=== PATIENT | female | born 1950 | race Caucasian/White ===

== ENCOUNTER 2017-11-29 15:07 | Outpatient (CLI) | payer MEDICARE, BC | END 2017-11-29 15:08 | disposition home or self-care (01) | LOC: BICRAD 15:07 | PROVIDERS: ATTEND Internal Medicine Rheumatology | DX: M54.2 Cervicalgia (principal); M99.51 Intervertebral disc stenosis of neural canal of cervical region | CPT/HCPCS: 72052 ==

== ENCOUNTER 2018-03-21 16:29 | Outpatient (CLI) | payer MEDICARE, BC | END 2018-03-21 16:30 | disposition home or self-care (01) | LOC: BICRAD 16:29 | PROVIDERS: ATTEND Internal Medicine Gastroenterology | DX: K22.70 Barrett's esophagus without dysplasia (principal); R13.10 Dysphagia, unspecified; K44.9 Diaphragmatic hernia without obstruction or gangrene; R05 Cough; K59.00 Constipation, unspecified | CPT/HCPCS: 71046 ==

== ENCOUNTER 2018-09-02 15:26 | Outpatient (CLI) | payer MEDICARE, BC | END 2018-09-02 15:27 | disposition home or self-care (01) | LOC: BICMAMMO 15:26 | PROVIDERS: ATTEND Obstetrics & Gynecology | DX: Z12.31 Encounter for screening mammogram for malignant neoplasm of breast (principal) | CPT/HCPCS: 77063; 77067 ==

== ENCOUNTER 2019-04-27 12:44 | Emergency (ER) | payer MEDICARE, BC | END 2019-04-27 13:30 | disposition home or self-care (01) | LOC: SCSER 12:44 | DX: H81.10 Benign paroxysmal vertigo, unspecified ear (principal); Z86.718 Personal history of other venous thrombosis and embolism; E78.5 Hyperlipidemia, unspecified; Z87.891 Personal history of nicotine dependence; Z79.899 Other long term (current) drug therapy; Z79.01 Long term (current) use of anticoagulants; Z79.82 Long term (current) use of aspirin | CPT/HCPCS: 99283 ==

== ENCOUNTER 2019-09-08 13:42 | Outpatient (CLI) | payer MEDICARE, BC ==
--- NOTE | 2019-09-08 14:14 | MMO ---
Bilateral MAMMO Bilat Screen [facility]. CLINICAL HISTORY: Patient is 69 years old and is seen for screening. The patient has no family history of breast cancer. The patient has a history of Skin cancer. VIEWS: The views performed were: bilateral craniocaudal with tomosynthesis and bilateral mediolateral oblique with tomosynthesis. FILMS COMPARED: The present examination has been compared to prior imaging studies performed at [facility] on 06/23/2015, 07/06/2016, 08/01/2017 and 09/02/2018. This study has been interpreted with the assistance of computer-aided detection. MAMMOGRAM FINDINGS: There are scattered fibroglandular densities. There are no suspicious masses, suspicious calcifications, or new areas of architectural distortion. IMPRESSION: THERE IS NO MAMMOGRAPHIC EVIDENCE OF MALIGNANCY. A ROUTINE FOLLOW-UP MAMMOGRAM IN 1 YEAR IS RECOMMENDED. THE RESULTS OF THIS EXAM WERE SENT TO THE PATIENT. ACR BI-RADS Category 1 - Negative MAMMOGRAPHY NOTE: 1. A negative mammogram report should not delay a biopsy if a dominant of clinically suspicious mass is present. 2. Approximately 10% to 15% of breast cancers are not detected by mammography. 3. Adenosis and dense breasts may obscure an underlying neoplasm. Reported by: NOEMY QUINTANA MD Electonically Signed: [id number]
== END 2019-09-08 13:43 | disposition home or self-care (01) ==
LOC: BICMAMMO 13:42
PROVIDERS: ATTEND Obstetrics & Gynecology
DX: Z12.31 Encounter for screening mammogram for malignant neoplasm of breast (principal); Z85.828 Personal history of other malignant neoplasm of skin
CPT/HCPCS: 77063; 77067

== ENCOUNTER 2020-06-10 08:14 | Outpatient (CLI) | payer MEDICARE, BC, OTHER ==
[2020-06-10 14:34] LABS: #Basophils 0.1 thou/uL (0.0-0.2); #Eosinphils 0.3 thou/uL (0.0-0.7); #Lymphocytes 1.1 thou/uL (1.20-3.40); #Monocytes 0.7 thou/uL (0.11-0.59); #Neutrophils 4.7 thou/uL (1.40-6.50); %Basophils 0.8 % (0.0-1.0); %Eosinophils 4.5 % (0.0-10.0); %Lymphocytes 15.8 % (21.0-51.0); %Monocytes 10.2 % (0.0-10.0); %Neutrophils 68.6 % (42.0-75.0); Hemoglobin 13.8 g/dL (12.0-16.0); Mean Corpuscular HGB CONC 32.9 g/dL (32.0-36.0); Mean Corpuscular Hemoglobin 29.3 pg (27.0-31.0); Mean Corpuscular Volume 89.2 fL (78.0-98.0); Mean Platelet Volume 7.8 fL (7.4-10.4); Platelet Count 300 thou/uL (130-400); RBC Distribution Width 16.4 % (11.5-14.5); Red Blood Cell (RBC) Count 4.69 mill/uL (4.20-5.40); White Blood Cell (WBC) Count 6.8 thou/uL (4.8-10.8)
[2020-06-10 15:16] LABS: ALT (SGPT) 14 U/L (8-55); AST (SGOT) 15 U/L (5-34); Alkaline Phosphatase 90 U/L (40-110); Anion Gap 17 mmol/L (10-20); BUN (Urea Nitrogen) 11 mg/dL (9.8-20.1); Bilirubin, Total 0.4 mg/dL (0.2-1.2); Calc. Creatinine Clearance 0 mL/min (70-130); Calcium 8.8 mg/dL (7.8-10.44); Carbon Dioxide 21 mmol/L (23-31); Chloride 106 mmol/L (98-107); Estimated GFR-MDRD 77; Globulin 3.2 g/dL (2.4-3.5); Glucose 117 mg/dL (83-110); Potassium 4.7 mmol/L (3.5-5.1); Protein, Total 7.2 g/dL (6.0-8.3); Sodium 139 mmol/L (136-145)
[2020-06-11 12:33] LABS: SARS-CoV-2 MS2 Positive; SARS-CoV-2 N Gene Negative; SARS-CoV-2 S Gene Negative; SARS-CoV-2 by NAA Not Detected (NotDetected); SARS-CoV-2 orf1ab Negative
--- NOTE | 2020-06-13 16:04 | EKG ---
Test Reason : PREOP Blood Pressure : / mmHG Vent. Rate : 065 BPM Atrial Rate : 066 BPM P-R Int : 000 ms QRS Dur : 108 ms QT Int : 422 ms P-R-T Axes : 000 -37 070 degrees QTc Int : 438 ms Normal sinus rhythm. Left axis deviation Incomplete right bundle branch block Abnormal ECG No previous ECGs available Confirmed by Monse TA ([id number]) on 06/13/2020 4:04:27 PM Referred By: Alexia AKERS Confirmed By:Monse TA
== END 2020-06-10 08:15 | disposition home or self-care (01) ==
LOC: LABBT 08:14
PROVIDERS: ATTEND Internal Medicine Cardiovascular Disease
DX: Z01.818 Encounter for other preprocedural examination (principal); Z20.828 Contact with and (suspected) exposure to other viral communicable diseases; R94.39 Abnormal result of other cardiovascular function study
CPT/HCPCS: 80053; 85025; U0003; 87635; 93005; 93010

== ENCOUNTER 2020-06-14 06:19 | Inpatient (IN) | payer MEDICARE, BC ==
[2020-06-14] MEDS ORDERED: Lidocaine 1% (PF) 30 ML VIAL ONE (09:44)
[2020-06-14] MEDS ORDERED: Nitroglycerin 100MG/250ML BOT 250 ML ONE ×2 (09:55→10:42)
[2020-06-14] MEDS ORDERED: Verapamil 5 MG/2 ML VIAL ONE (09:55)
[2020-06-14] MEDS ORDERED: Heparin 10,000 UNITS/ 10 ML VIAL ONE ×2 (09:55→10:15)
[2020-06-14] MEDS ORDERED: Fentanyl 100 MCG/2 ML VIAL ONE (10:12)
[2020-06-14] MEDS ORDERED: Midazolam HCl 2 mg/2 ml Vial ONE (10:12)
[2020-06-14] MEDS ORDERED: Clopidogrel Bisulfate 300 MG TAB ONE (10:42)
[2020-06-14] MEDS ORDERED: Aspirin Chewable 81 MG TAB ONE (10:42)
[2020-06-14] MEDS ORDERED: Bivalirudin 250 MG VIAL ONE ×2 (10:42→12:07)
[2020-06-14] MEDS ORDERED: Iopamidol 370 76% 100 ML VIAL ONE (12:10)
[2020-06-14] MEDS ORDERED: Iopamidol 370 76% 50 ML VIAL FS ONE (12:10)
[2020-06-14] MEDS ORDERED: RISEDRONATE 35 MG PO SCH (13:45)
[2020-06-14] MEDS ORDERED: Sodium Chloride 0.9% 1,000 ML IV SCH (13:48)
[2020-06-14] MEDS ORDERED: Nitroglycerin 0.4 MG TAB (25 Tab Bottle) SL PRN (13:48)
--- NOTE | 2020-06-14 15:27 | EKG ---
Test Reason : POST CATH Blood Pressure : / mmHG Vent. Rate : 053 BPM Atrial Rate : 053 BPM P-R Int : 236 ms QRS Dur : 098 ms QT Int : 362 ms P-R-T Axes : 063 -31 059 degrees QTc Int : 339 ms Sinus bradycardia with 1st degree A-V block Left axis deviation Nonspecific T wave abnormality Abnormal ECG Confirmed by SABINE RUELAS M.D. ([id number]) on 06/14/2020 3:27:20 PM Referred By: OSWALD Confirmed By:SABINE RUELAS M.D.
[2020-06-14 15:59] VITALS: BMI 30.5
[2020-06-14] MEDS: Ubidecarenone 50 MG CAP PO SCH (20:52)
[2020-06-14] MEDS: Metoprolol Tartrate 25 MG TAB PO SCH (20:55)
[2020-06-14] MEDS: Amiodarone 200 MG TAB PO SCH (20:55)
[2020-06-14] MEDS: Rosuvastatin 10 MG TAB PO SCH (20:55)
[2020-06-14] MEDS: Melatonin 3 MG TAB PO SCH (20:56)
[2020-06-14] MEDS ORDERED: Ondansetron ODT 4 MG TAB PO PRN (22:12)
[2020-06-15 04:55] LABS: #Eosinphils 0.2 thou/uL (0.0-0.7); #Monocytes 0.5 thou/uL (0.11-0.59); #Neutrophils 4.6 thou/uL (1.40-6.50); %Basophils 0.7 % (0.0-1.0); %Eosinophils 3.5 % (0.0-10.0); %Lymphocytes 15.7 % (21.0-51.0); %Monocytes 8.2 % (0.0-10.0); %Neutrophils 71.8 % (42.0-75.0); Hemoglobin 11.3 g/dL (12.0-16.0); Mean Corpuscular HGB CONC 32.6 g/dL (32.0-36.0); Mean Corpuscular Hemoglobin 29.1 pg (27.0-31.0); Mean Corpuscular Volume 89.3 fL (78.0-98.0); Mean Platelet Volume 7.4 fL (7.4-10.4); Platelet Count 258 thou/uL (130-400); RBC Distribution Width 15.8 % (11.5-14.5); Red Blood Cell (RBC) Count 3.89 mill/uL (4.20-5.40); White Blood Cell (WBC) Count 6.5 thou/uL (4.8-10.8)
[2020-06-15] MEDS: Levothyroxine Sodium 112 MCG TAB PO SCH (05:09)
[2020-06-15] MEDS: Levothyroxine Sodium 25 MCG TAB PO SCH (05:09)
[2020-06-15 05:18] LABS: Anion Gap 13 mmol/L (10-20); BUN (Urea Nitrogen) 9 mg/dL (9.8-20.1); Calc. Creatinine Clearance 101 mL/min (70-130); Calcium 8.3 mg/dL (7.8-10.44); Carbon Dioxide 19 mmol/L (23-31); Cardiac Risk 2.5 (Less than 4.5); Chloride 109 mmol/L (98-107); Cholesterol 132 mg/dl (< 200 Desired); Estimated GFR-MDRD Greater than 90; Glucose 102 mg/dL (83-110); HDL Cholesterol 53 mg/dL (>60 Neg Risk); LDL Cholesterol, Calculated 66 mg/dL; Potassium 4.1 mmol/L (3.5-5.1); Sodium 137 mmol/L (136-145); Triglycerides 64 mg/dL (Less than 150)
[2020-06-15] MEDS ORDERED: Aspirin Chewable 81 MG TAB PO SCH (09:00)
[2020-06-15] MEDS ORDERED: CRANBERRY 12600 MG PO SCH (09:00)
[2020-06-15] MEDS: Cholecalciferol 1,000 UNITS (25 MCG) TAB PO SCH (09:19)
[2020-06-15] MEDS: Amiodarone 200 MG TAB PO SCH ×2 (09:20→20:00)
[2020-06-15] MEDS: Aspirin 81 mg Enteric Coated Tablet PO SCH (09:20)
[2020-06-15] MEDS: Cyanocobalamin (Vitamin B-12) 1,000 MCG TAB PO SCH (09:20)
[2020-06-15] MEDS: Folic Acid 1 MG TAB PO SCH (09:20)
[2020-06-15] MEDS: Stress 600 With Zinc 1 TAB PO SCH (09:20)
[2020-06-15] MEDS: Fish Oil 1,000 MG CAP PO SCH (09:21)
[2020-06-15] MEDS: Metoprolol Tartrate 25 MG TAB PO SCH (11:22)
[2020-06-15] MEDS: Sodium Chloride 0.9% 250 ML IV SCH ×3 (16:00→17:09)
[2020-06-15] MEDS: Ubidecarenone 50 MG CAP PO SCH (19:59)
[2020-06-15] MEDS: Rosuvastatin 10 MG TAB PO SCH (20:00)
[2020-06-15] MEDS: Melatonin 3 MG TAB PO SCH (20:02)
[2020-06-16] MEDS: Levothyroxine Sodium 25 MCG TAB PO SCH (02:15)
[2020-06-16] MEDS: Levothyroxine Sodium 112 MCG TAB PO SCH (02:15)
[2020-06-16] MEDS ORDERED: Cyanocobalamin (Vitamin B-12) 1,000 MCG TAB ONE (08:38)
[2020-06-16] MEDS ORDERED: Amiodarone 200 MG TAB ONE (08:38)
[2020-06-16] MEDS ORDERED: Aspirin 81 mg Enteric Coated Tablet ONE (08:38)
[2020-06-16] MEDS ORDERED: Cholecalciferol 1,000 UNITS (25 MCG) TAB ONE (08:38)
[2020-06-16] MEDS ORDERED: Folic Acid 1 MG TAB ONE (08:38)
[2020-06-16] MEDS ORDERED: Apixaban 5 MG TAB ONE (08:38)
[2020-06-16] MEDS ORDERED: Stress 600 With Zinc 1 TAB PO ONE (08:38)
[2020-06-16] MEDS ORDERED: Fish Oil 1,000 MG CAP ONE (08:38)
[2020-06-16] MEDS: Cholecalciferol 1,000 UNITS (25 MCG) TAB PO SCH (08:40)
[2020-06-16] MEDS: Amiodarone 200 MG TAB PO SCH (08:40)
[2020-06-16] MEDS: Aspirin 81 mg Enteric Coated Tablet PO SCH (08:40)
[2020-06-16] MEDS: Folic Acid 1 MG TAB PO SCH (08:40)
[2020-06-16] MEDS: Stress 600 With Zinc 1 TAB PO SCH (08:40)
[2020-06-16] MEDS: Fish Oil 1,000 MG CAP PO SCH (08:40)
[2020-06-16] MEDS: Cyanocobalamin (Vitamin B-12) 1,000 MCG TAB PO SCH (08:40)
[2020-06-16] MEDS ORDERED: Apixaban 5 MG TAB PO SCH (09:00)
--- NOTE | 2020-06-16 10:21 | EKG ---
Test Reason : ROUTINE Blood Pressure : / mmHG Vent. Rate : 058 BPM Atrial Rate : 058 BPM P-R Int : 224 ms QRS Dur : 092 ms QT Int : 450 ms P-R-T Axes : 035 -32 003 degrees QTc Int : 441 ms Sinus bradycardia with 1st degree A-V block Left axis deviation Abnormal ECG When compared with ECG of 14-JUN-2020 13:56, QT has lengthened Confirmed by SABINE RUELAS M.D. ([id number]) on 06/16/2020 10:21:13 AM Referred By: OSWALD Confirmed By:SABINE RUELAS M.D.
--- NOTE | 2020-06-16 10:23 | EKG ---
Test Reason : Blood Pressure : / mmHG Vent. Rate : 053 BPM Atrial Rate : 053 BPM P-R Int : 220 ms QRS Dur : 092 ms QT Int : 458 ms P-R-T Axes : 013 -28 010 degrees QTc Int : 429 ms Sinus bradycardia with 1st degree A-V block Otherwise normal ECG When compared with ECG of 14-JUN-2020 23:31, (Unconfirmed) No significant change was found Confirmed by SABINE RUELAS M.D. ([id number]) on 06/16/2020 10:23:18 AM Referred By: OSWALD Confirmed By:SABINE RUELAS M.D.
[2020-06-16 16:01] VITALS: BP 120/58; TEMP 97.8
[2020-06-16] MEDS ORDERED: Amiodarone 200 MG TAB PO SCH (21:00)
--- NOTE | 2020-06-16 23:51 | DIS ---
DATE OF ADMISSION: 06/15/2020 DATE OF DISCHARGE: 06/16/2020 DISCHARGE DIAGNOSES: 1. Two-vessel coronary artery disease (LAD and RCA). 2. History of paroxysmal atrial fibrillation. 3. Status post right popliteal artery thrombectomy. 4. Hypercholesterolemia. 5. Former smoker. 6. Hypothyroidism. 7. Rheumatoid arthritis. DISCHARGE DISPOSITION: Patient to be seen in 1 month for followup. If she continues to have chest discomfort despite current medications, then consideration may be given to CABG. DISCHARGE MEDICATIONS: Vitamin B with C, cranberry extract, fish oil 1200 mg daily, folic acid 1 mg daily, Hemp oil 625 b.i.d., levothyroxine 137 mcg daily, melatonin 10 mg at bedtime, methotrexate 2.5 mg 6 tablets every 7 days, omeprazole 40 mg daily, risedronate sodium 35 mg as directed, rosuvastatin 10 mg at bedtime, CoQ10 at 400 mg at bedtime, Eliquis 5 mg b.i.d., vitamin D3 at 5000 units every other day, B12 at 1000 mcg daily, Dramamine 50 mg p.r.n., Zoloft 100 mg daily, amiodarone 200 mg b.i.d., aspirin 81 daily, isosorbide mononitrate ER 30 mg q.a.m., Ranexa 500 mg b.i.d., nitroglycerin 0.4 mg sublingually p.r.n. HOSPITAL COURSE: Mrs. Gutierrez has been having somewhat atypical chest pain and shortness of breath. She underwent stress testing, which revealed moderate proximal to distal inferior wall ischemia. She came for cardiac catheterization. There was mild anterior hypokinesis with ejection fraction of 50% to 55%. The LAD had somewhat diffuse disease with 50% to 60% proximal, 60% mid, and 50% first diagonal lesion. The circumflex was normal. Right coronary artery had a 99% mid stenosis. The distal vessel filled retrograde from the left. Despite prolonged attempt in the cardiac label printer, the lesion could not be crossed with a wire. The decision was made to treat her medically. She had been having 2 or 3 episodes of chest pain per day and so it was felt best to admit her for intensified medical therapy. She was placed on metoprolol 25 mg b.i.d., however, that had to be discontinued due to hypotension. On the isosorbide mononitrate and Ranexa, she was walking 400 feet in the [place] without symptoms of chest discomfort. She also states that her shortness of breath had dramatically improved. On the rosuvastatin 10 mg, her LDL was 66. Also with coronary artery disease, her flecainide was discontinued and she was placed on amiodarone 400 mg b.i.d. while in the hospital and this will be reduced to 200 mg b.i.d. at discharge. Job ID: [id number] [facility]
[2020-06-21] MEDS ORDERED: Methotrexate Sodium 2.5 MG TAB PO SCH (09:00)
== END 2020-06-16 16:59 | disposition home or self-care (01) | DRG 287 ==
LOC: CCL 06:19 → 2SW 12:55 → OBSVTOIN 06-15 09:04
PROVIDERS: ADMIT Internal Medicine Cardiovascular Disease; ATTEND Internal Medicine Cardiovascular Disease
PROC: B2111ZZ Fluoroscopy of Multiple Coronary Arteries using Low Osmolar Contrast (ICD-10-PCS; principal; 2020-06-14)
PROC: B2151ZZ Fluoroscopy of Left Heart using Low Osmolar Contrast (ICD-10-PCS; 2020-06-14)
PROC: 4A023N7 Measurement of Cardiac Sampling and Pressure, Left Heart, Percutaneous Approach (ICD-10-PCS; 2020-06-14)
DX: I25.10 Atherosclerotic heart disease of native coronary artery without angina pectoris (principal); R07.89 Other chest pain; I48.0 Paroxysmal atrial fibrillation; M06.9 Rheumatoid arthritis, unspecified; Z88.2 Allergy status to sulfonamides; Z88.6 Allergy status to analgesic agent; Z87.891 Personal history of nicotine dependence; Z98.890 Other specified postprocedural states; I95.9 Hypotension, unspecified
CPT/HCPCS: 36415; 80048; 80061; 84443; 85025; 85347; 93005; 93010; 93458; 99152; 99153; J0583; J1644; J2001; J2250; J3010; Q0162; Q9967

== ENCOUNTER 2020-07-13 13:29 | Outpatient (CLI) | payer MEDICARE, BC ==
--- NOTE | 2020-07-13 14:22 | BD ---
EXAM: Bone densitometry using DEXA HISTORY: 70 yo female. Screening for postmenopausal osteoporosis FINDINGS: L1--bone mineral density 0.656 g/sq cm; T score -2.0 ; Z score -1.1 L2--bone mineral density 0.651 g/sq cm; T score -3.4 ; Z score -1.2 L3--bone mineral density 0.617 g/sq cm; T score -4.2 ; Z score -1.9 L4--bone mineral density 0.560 g/sq cm; T score -4.6 ; Z score -2.2 Total L1-L4--bone mineral density 0.616 g/sq cm; T score -2.9 ; Z score -1.7 Left femoral neck--bone mineral density0.623; T score -2.0 ; Z score -0.1 Total proximal left femur--bone mineral density 0.769; T score -1.4 ; Z score 0.2 The 10 year fracture risk for a major osteoporotic fracture is 16% and for a hip fracture is 3.7%. IMPRESSION: Osteoporosis
== END 2020-07-13 13:30 | disposition home or self-care (01) ==
LOC: BICMAMMO 13:29
PROVIDERS: ATTEND Internal Medicine Rheumatology
DX: M81.0 Age-related osteoporosis without current pathological fracture (principal)
CPT/HCPCS: 77080

== ENCOUNTER 2020-07-24 11:39 | Emergency (ER) | payer MEDICARE, BC, OTHER ==
[2020-07-24 12:31] LABS: Hemoglobin 12.4 g/dL (12.0-16.0); Mean Corpuscular HGB CONC 33.3 g/dL (32.0-36.0); Mean Corpuscular Hemoglobin 30.2 pg (27.0-31.0); Mean Corpuscular Volume 90.8 fL (78.0-98.0); Platelet Count 278 thou/uL (130-400); RBC Distribution Width 17.7 % (11.5-14.5); Red Blood Cell (RBC) Count 4.11 mill/uL (4.20-5.40); White Blood Cell (WBC) Count 13.2 thou/uL (4.8-10.8)
--- NOTE | 2020-07-24 12:40 | RAD ---
XR Chest 1 View Portable History: Flulike symptoms Comparison: Radiograph March 21, 2018 Findings: Likely a large sliding hiatal hernia. Background lung hyperinflation. No confluent airspace consolidation, pneumothorax or effusion. No acute osseous abnormality. Impression: Likely large sliding hiatal hernia. No acute intrathoracic abnormality.
[2020-07-24 12:50] LABS: Anisocytosis SLIGHT = 6-15 cells (100X) (0-5/hpf); Band 9 % (5-11); Eosinophils 3 % (0-10); Lymphocytes 1 % (21-51); MDiff Complete? YES; Monocytes 7 % (0-10); Neutrophil 79 % (42-75); Platelet Morphology Comment Appears Adequate; Polychromasia SLIGHT = 2-3 cells (100X) (0-2/hpf); Reactive Lymphocytes 1 % (0-10)
[2020-07-24 12:58] LABS: ALT (SGPT) 30 U/L (8-55); AST (SGOT) 29 U/L (5-34); Albumin 3.6 g/dL (3.4-4.8); Alkaline Phosphatase 76 U/L (40-110); Anion Gap 15 mmol/L (10-20); BUN (Urea Nitrogen) 16 mg/dL (9.8-20.1); Bilirubin, Total 0.5 mg/dL (0.2-1.2); Calc. Creatinine Clearance 0 mL/min (70-130); Calcium 8.9 mg/dL (7.8-10.44); Carbon Dioxide 20 mmol/L (23-31); Chloride 104 mmol/L (98-107); Estimated GFR-MDRD 71; Globulin 3.8 g/dL (2.4-3.5); Glucose 134 mg/dL (83-110); Protein, Total 7.4 g/dL (6.0-8.3); Sodium 134 mmol/L (136-145)
[2020-07-24 13:09] LABS: Bilirubin Negative (Negative); Blood, Urine Trace (Negative); Clarity Clear (Clear); Glucose, Urine (Dipstick) Normal (Negative); Ketone, Urine Negative (Negative); Leukocyte 250 Leu/uL (Negative); Nitrite Negative (Negative); Protein, Urine (Dipstick) 10 mg/dL (Neg-Trace); Specific Gravity, Urine 1.023 (1.002-1.036); Transitional Epithelial 0-3 HPF (None Seen); Urobilinogen Normal mg/dL (Less than 2)
[2020-07-24 13:10] LABS: Bacteria/HPF 1+ HPF (None Seen)
[2020-07-25 11:41] LABS: SARS-CoV-2 MS2 Positive; SARS-CoV-2 N Gene Negative; SARS-CoV-2 S Gene Negative; SARS-CoV-2 by NAA Not Detected (NotDetected); SARS-CoV-2 orf1ab Negative
== END 2020-07-24 15:59 | disposition home or self-care (01) ==
LOC: ERS 11:39
DX: N39.0 Urinary tract infection, site not specified (principal); Z20.828 Contact with and (suspected) exposure to other viral communicable diseases; I48.91 Unspecified atrial fibrillation; M06.9 Rheumatoid arthritis, unspecified; E78.5 Hyperlipidemia, unspecified; E78.00 Pure hypercholesterolemia, unspecified; F17.290 Nicotine dependence, other tobacco product, uncomplicated
CPT/HCPCS: 71045; 80053; 83605; 85025; 87086; 87804 ×2; 99284; U0003; 36415; 81003; 81015; 87635

== ENCOUNTER 2020-08-14 13:14 | Emergency (ER) | payer MEDICARE, BC ==
[2020-08-14 14:44] LABS: Bilirubin Negative (Negative); Blood, Urine 1+ (Negative); Clarity Clear (Clear); Glucose, Urine (Dipstick) Normal (Negative); Ketone, Urine Negative (Negative); Leukocyte 250 Leu/uL (Negative); Mucous/LPF 1+ LPF (<2+); Nitrite Negative (Negative); Protein, Urine (Dipstick) 10 mg/dL (Neg-Trace); Transitional Epithelial 0-3 HPF (None Seen); Urobilinogen Normal mg/dL (Less than 2); WBC/HPF 21-50 HPF (0-3); pH, Urine 6.5 (5.0-9.0)
[2020-08-14 14:51] LABS: Bacteria/HPF 1+ HPF (None Seen)
[2020-08-14 14:53] LABS: #Eosinphils 0.3 thou/uL (0.0-0.7); #Lymphocytes 0.6 thou/uL (1.20-3.40); #Monocytes 0.9 thou/uL (0.11-0.59); #Neutrophils 6.7 thou/uL (1.40-6.50); %Basophils 0.2 % (0.0-1.0); %Eosinophils 4.1 % (0.0-10.0); %Lymphocytes 6.7 % (21.0-51.0); %Monocytes 10.8 % (0.0-10.0); %Neutrophils 78.3 % (42.0-75.0); Hemoglobin 12.3 g/dL (12.0-16.0); Mean Corpuscular HGB CONC 32.8 g/dL (32.0-36.0); Mean Corpuscular Volume 88.6 fL (78.0-98.0); Mean Platelet Volume 6.6 fL (7.4-10.4); Platelet Count 307 thou/uL (130-400); RBC Distribution Width 17.9 % (11.5-14.5); Red Blood Cell (RBC) Count 4.24 mill/uL (4.20-5.40); White Blood Cell (WBC) Count 8.5 thou/uL (4.8-10.8)
[2020-08-14 15:16] LABS: ALT (SGPT) 13 U/L (8-55); AST (SGOT) 16 U/L (5-34); Albumin 3.3 g/dL (3.4-4.8); Alkaline Phosphatase 70 U/L (40-110); Anion Gap 16 mmol/L (10-20); BUN (Urea Nitrogen) 11 mg/dL (9.8-20.1); Bilirubin, Total 0.4 mg/dL (0.2-1.2); Calc. Creatinine Clearance 0 mL/min (70-130); Calcium 8.7 mg/dL (7.8-10.44); Carbon Dioxide 20 mmol/L (23-31); Chloride 101 mmol/L (98-107); Globulin 3.9 g/dL (2.4-3.5); Glucose 110 mg/dL (83-110); Potassium 4.2 mmol/L (3.5-5.1); Protein, Total 7.2 g/dL (6.0-8.3); Sodium 133 mmol/L (136-145)
[2020-08-14] MEDS ORDERED: cefTRIAXone\\ROCEPHIN 1 GM VIAL ONE (16:03)
[2020-08-14] MEDS ORDERED: Promethazine HCl 25 MG/ML VIAL ONE (16:03)
[2020-08-14] MEDS ORDERED: Nitrofurantoin Macrocrystal 50 MG CAP PO SCH (16:30)
== END 2020-08-14 18:10 | disposition home or self-care (01) ==
LOC: ERS 13:14
DX: N39.0 Urinary tract infection, site not specified (principal); E87.1 Hypo-osmolality and hyponatremia; I48.91 Unspecified atrial fibrillation; M06.9 Rheumatoid arthritis, unspecified; E78.5 Hyperlipidemia, unspecified; E78.00 Pure hypercholesterolemia, unspecified; Z87.891 Personal history of nicotine dependence; Z79.01 Long term (current) use of anticoagulants; Z79.899 Other long term (current) drug therapy
CPT/HCPCS: 36415; 80053; 81003; 81015; 85025; 87086; 96365; 96375; J0696; J2550

== ENCOUNTER 2020-11-12 11:51 | Outpatient (CLI) | payer MEDICARE, BC ==
--- NOTE | 2020-11-12 12:28 | MMO ---
Bilateral MAMMO Bilat Screen [facility]. CLINICAL HISTORY: Patient is 70 years old and is seen for screening. The patient has no family history of breast cancer. The patient has a history of Skin cancer. VIEWS: The views performed were: bilateral craniocaudal with tomosynthesis and bilateral mediolateral oblique with tomosynthesis. FILMS COMPARED: The present examination has been compared to prior imaging studies performed at [facility] on 07/06/2016, 08/01/2017, 09/02/2018 and 09/08/2019. This study has been interpreted with the assistance of computer-aided detection. MAMMOGRAM FINDINGS: There are scattered fibroglandular densities. There are vascular calcifications seen in both breasts. There are no suspicious masses, suspicious calcifications, or new areas of architectural distortion. IMPRESSION: A ROUTINE FOLLOW-UP MAMMOGRAM IN 1 YEAR IS RECOMMENDED. THE RESULTS OF THIS EXAM WERE SENT TO THE PATIENT. ACR BI-RADS Category 2 - Benign finding MAMMOGRAPHY NOTE: 1. A negative mammogram report should not delay a biopsy if a dominant of clinically suspicious mass is present. 2. Approximately 10% to 15% of breast cancers are not detected by mammography. 3. Adenosis and dense breasts may obscure an underlying neoplasm. Reported by: WALESKA DALEY MD Electonically Signed: [id number]
== END 2020-11-12 11:52 | disposition home or self-care (01) ==
LOC: BICMAMMO 11:51
PROVIDERS: ATTEND Obstetrics & Gynecology
DX: Z12.31 Encounter for screening mammogram for malignant neoplasm of breast (principal); Z85.828 Personal history of other malignant neoplasm of skin
CPT/HCPCS: 77063; 77067

== ENCOUNTER 2021-01-26 08:15 | Outpatient (CLI) | payer MEDICARE, BC | END 2021-01-26 08:16 | disposition home or self-care (01) | LOC: NM 08:15 | PROVIDERS: ATTEND Physician Assistant Medical | DX: D50.9 Iron deficiency anemia, unspecified (principal); R11.10 Vomiting, unspecified; R10.11 Right upper quadrant pain | CPT/HCPCS: 78227; A9537 ==

== ENCOUNTER 2021-02-23 13:33 | Outpatient (CLI) | payer MEDICARE, BC | END 2021-02-23 13:34 | disposition home or self-care (01) | LOC: BICRAD 13:33 | PROVIDERS: ATTEND Internal Medicine Critical Care Medicine | DX: R06.00 Dyspnea, unspecified (principal) | CPT/HCPCS: 71046 ==

== ENCOUNTER 2021-03-28 10:21 | Outpatient (CLI) | payer MEDICARE, BC | END 2021-03-28 10:22 | disposition home or self-care (01) | LOC: BICMAMMO 10:21 | PROVIDERS: ATTEND Internal Medicine Rheumatology | DX: M81.0 Age-related osteoporosis without current pathological fracture (principal); M85.851 Other specified disorders of bone density and structure, right thigh; M85.852 Other specified disorders of bone density and structure, left thigh | CPT/HCPCS: 77080 ==

== ENCOUNTER 2021-06-10 10:55 | Outpatient (CLI) | payer MEDICARE, BC ==
[2021-06-10 13:28] LABS: #Basophils 0.1 10x3/uL (0.0-0.2); #Eosinphils 0.1 10x3/uL (0.0-0.5); #Monocytes 0.7 10x3/uL (0.0-1.1); %Eosinophils 2.7 % (0.0-6.0); %Lymphocytes 20.3 % (18.0-47.0); %Monocytes 15.2 % (0.0-10.0); %Neutrophils 60.4 % (40.0-75.0); Hemoglobin 12.9 g/dL (12.0-15.5); Mean Corpuscular HGB CONC 32.7 g/dL (32.0-36.0); Mean Corpuscular Volume 94.7 fl (81.6-98.3); Mean Platelet Volume 9.7 fl (7.4-10.4); Platelet Count 291 10x3/uL (150-450); Red Blood Cell (RBC) Count 4.16 10x6/uL (3.90-5.03); White Blood Cell (WBC) Count 4.9 10x3/uL (3.5-10.5)
[2021-06-10 13:36] LABS: Anion Gap 13 mmol/L (10-20); BUN (Urea Nitrogen) 19 mg/dL (9.8-20.1); Calc. Creatinine Clearance 0 mL/min (70-130); Calcium 9.5 mg/dL (7.8-10.44); Carbon Dioxide 26 mmol/L (23-31); Chloride 105 mmol/L (98-107); Glucose 106 mg/dL (83-110); Potassium 4.5 mmol/L (3.5-5.1); Sodium 139 mmol/L (136-145)
[2021-06-12 00:14] LABS: SARS-CoV-2 PCR by NAA Not Detected (NotDetected)
== END 2021-06-10 10:56 | disposition home or self-care (01) ==
LOC: LABBT 10:55
PROVIDERS: ATTEND Internal Medicine Cardiovascular Disease
DX: Z01.818 Encounter for other preprocedural examination (principal); Z20.822 Contact with and (suspected) exposure to COVID-19
CPT/HCPCS: 80048; 85025; 93005; U0003; U0005; 93010

== ENCOUNTER 2021-06-13 06:20 | Day surgery (SDC) | payer MEDICARE, BC ==
[2021-06-13] MEDS ORDERED: Fentanyl 100 MCG/2 ML VIAL ONE (06:46)
[2021-06-13] MEDS ORDERED: Propofol 500 MG/50 ML VIAL ONE (06:46)
== END 2021-06-13 07:22 | disposition home or self-care (01) ==
LOC: CCL 06:20
PROVIDERS: ATTEND Internal Medicine Cardiovascular Disease
DX: I48.0 Paroxysmal atrial fibrillation (principal); I25.10 Atherosclerotic heart disease of native coronary artery without angina pectoris; E78.00 Pure hypercholesterolemia, unspecified; E03.9 Hypothyroidism, unspecified; J84.9 Interstitial pulmonary disease, unspecified; D64.9 Anemia, unspecified; M06.9 Rheumatoid arthritis, unspecified; M19.90 Unspecified osteoarthritis, unspecified site; Z53.8 Procedure and treatment not carried out for other reasons; Z86.718 Personal history of other venous thrombosis and embolism; Z87.891 Personal history of nicotine dependence; Z79.899 Other long term (current) drug therapy
CPT/HCPCS: J2704; J3010

== ENCOUNTER 2021-09-05 13:11 | Outpatient (CLI) | payer MEDICARE, BC | END 2021-09-05 13:12 | disposition home or self-care (01) | LOC: BICRAD 13:11 | PROVIDERS: ATTEND Internal Medicine Rheumatology | DX: M79.671 Pain in right foot (principal); M47.27 Other spondylosis with radiculopathy, lumbosacral region; M43.17 Spondylolisthesis, lumbosacral region; S92.354A Nondisplaced fracture of fifth metatarsal bone, right foot, initial encounter for closed fracture | CPT/HCPCS: 72110 ==

== ENCOUNTER 2023-05-29 14:24 | Outpatient (CLI) | payer MEDICARE, BC | END 2023-05-29 14:25 | disposition home or self-care (01) | LOC: BICMAMMO 14:24 | PROVIDERS: ATTEND Internal Medicine Rheumatology | DX: Z12.31 Encounter for screening mammogram for malignant neoplasm of breast (principal); M81.0 Age-related osteoporosis without current pathological fracture; M85.89 Other specified disorders of bone density and structure, multiple sites; Z85.828 Personal history of other malignant neoplasm of skin | CPT/HCPCS: 77063; 77067; 77080 ==

== ENCOUNTER 2023-08-13 08:25 | Inpatient (IN) | payer MEDICARE, BC ==
[2023-08-10 17:13] LABS: Hematocrit 33.6 % (34.9-44.5); Hemoglobin 11.1 g/dL (12.0-15.5); Mean Corpuscular Hemoglobin 31.4 pg (27.0-33.0); Mean Corpuscular Volume 94.9 fl (81.6-98.3); Mean Platelet Volume 9.9 fl (7.4-10.4); Platelet Count 253 10x3/uL (150-450); RBC Distribution Width 14.8 % (11.5-14.5); Red Blood Cell (RBC) Count 3.54 10x6/uL (3.90-5.03); White Blood Cell (WBC) Count 5.8 10x3/uL (3.5-10.5)
[2023-08-10 17:31] LABS: INR-International Normal Ratio 1.1; PTT 27.6 sec (22.0-33.0); Prothrombin Time 11.4 sec (9.5-12.1)
[2023-08-10 17:34] LABS: Anion Gap 11 mmol/L (10-20); BUN (Urea Nitrogen) 17 mg/dL (9.8-20.1); Calc. Creatinine Clearance 0 mL/min (70-130); Calcium 8.8 mg/dL (7.8-10.44); Carbon Dioxide 30 mmol/L (23-31); Chloride 103 mmol/L (98-107); Estimated GFR 39; Glucose 121 mg/dL (83-110); Potassium 3.1 mmol/L (3.5-5.1); Sodium 141 mmol/L (136-145)
[2023-08-13] MEDS ORDERED: HYDROmorphone 2 MG/ML VIAL SLOW IVP PRN (09:08)
[2023-08-13] MEDS ORDERED: Promethazine HCl 25 MG/ML VIAL IM PRN (09:08)
[2023-08-13] MEDS ORDERED: Ondansetron HCl/PF 4 MG/2 ML Vial IVP PRN (09:08)
[2023-08-13] MEDS ORDERED: Heparin 25,000 units/D5W 500 ML ONE (10:34)
[2023-08-13] MEDS ORDERED: fentaNYL PF 100 MCG/2 ML SYRINGE ONE (12:11)
[2023-08-13] MEDS ORDERED: Midazolam HCl 2 mg/2 ml Vial ONE (12:12)
[2023-08-13] MEDS ORDERED: Rocuronium Bromide 10 MG/ML (10ML VIAL) ONE (12:16)
[2023-08-13] MEDS ORDERED: Ondansetron PF 4 MG/2 ML Vial ONE (12:16)
[2023-08-13] MEDS ORDERED: diphenhydrAMINE 50 MG/ML VIAL ONE ×2 (12:16→16:30)
[2023-08-13] MEDS ORDERED: PROPOFOL 200 MG/20 ML VIAL ONE (12:16)
[2023-08-13] MEDS ORDERED: Phenylephrine 10 MG/ML VIAL ONE (12:17)
[2023-08-13] MEDS ORDERED: Isoproterenol 0.2 MG/1 ML AMP ONE (14:58)
[2023-08-13] MEDS ORDERED: Protamine Sulfate 50 MG/5 ML VIAL ONE (15:39)
[2023-08-13] MEDS ORDERED: fentaNYL 50 mcg/mL 1 mL Vial ONE ×2 (16:28→16:50)
[2023-08-13] MEDS ORDERED: Sodium Chloride 0.9% 500 ML IVPB PRN (17:26)
[2023-08-13] MEDS ORDERED: DOPamine 400 MG/D5W 250 ML 250 ML IVPB PRN (17:28)
[2023-08-13] MEDS ORDERED: Electrolyte Replacement Protocol 1 EACH FS SCH (18:49)
[2023-08-13 19:33] VITALS: BMI 27.3
[2023-08-13] MEDS ORDERED: Potassium Chloride 20 MEQ TAB PO SCH (21:00)
[2023-08-13] MEDS: Rosuvastatin 20 MG TAB PO SCH (21:08)
[2023-08-13] MEDS: Midodrine HCl 5 MG TAB PO SCH (21:09)
[2023-08-14] MEDS: Ketorolac Tromethamine 30 MG/ML VIAL IVP PRN ×3 (00:09→21:03)
[2023-08-14] MEDS ORDERED: Acetaminophen 650 MG Suppository PR PRN (04:56)
[2023-08-14] MEDS ORDERED: Acetaminophen 325 MG TAB PO PRN (04:56)
[2023-08-14] MEDS: Midodrine HCl 5 MG TAB PO SCH ×3 (05:31→20:58)
[2023-08-14] MEDS: Levothyroxine Sodium 112 MCG TAB PO SCH (05:32)
[2023-08-14] MEDS: Levothyroxine Sodium 25 MCG TAB PO SCH (05:32)
[2023-08-14] MEDS: Ferrous Gluconate 324 MG TAB PO SCH ×2 (08:17→20:57)
[2023-08-14] MEDS: Cholecalciferol 1,000 UNITS (25 MCG) TAB PO SCH (08:17)
[2023-08-14] MEDS: Folic Acid 1 MG TAB PO SCH (08:18)
[2023-08-14] MEDS: CO Q-10 CAPSULE 50 MG PO SCH (08:18)
[2023-08-14 08:31] LABS: INR-International Normal Ratio 1.2; PTT 31.7 sec (22.9-36.1); Prothrombin Time 15.4 sec (12.0-14.7)
[2023-08-14] MEDS ORDERED: Aspirin 81 mg Enteric Coated Tablet PO SCH (09:00)
[2023-08-14] MEDS ORDERED: Apixaban 5 MG TAB PO SCH (09:00)
[2023-08-14] MEDS: Ezetimibe 10 MG TAB PO SCH (09:23)
[2023-08-14] MEDS: Fludrocortisone Acetate 0.1 MG TAB PO SCH (09:23)
[2023-08-14] MEDS: Sertraline 25 MG TAB PO SCH (09:23)
[2023-08-14] MEDS ORDERED: Iopamidol 370 76% 100 ML VIAL ONE ×2 (10:00→10:35)
[2023-08-14 10:29] LABS: #Basophils 0.1 thou/uL (0.0-0.2); #Eosinphils 0.1 thou/uL (0.0-0.7); #Neutrophils 5.3 thou/uL (1.40-6.50); %Basophils 0.6 % (0.0-1.0); %Eosinophils 1.6 % (0.0-10.0); %Lymphocytes 15.8 % (21.0-51.0); %Monocytes 12.8 % (0.0-10.0); %Neutrophils 68.4 % (42.0-75.0); Hematocrit 27.3 % (36.0-47.0); Hemoglobin 8.7 g/dL (12.0-16.0); Mean Corpuscular HGB CONC 31.9 g/dL (32.0-36.0); Mean Corpuscular Hemoglobin 31.4 pg (27.0-31.0); Mean Corpuscular Volume 98.6 fl (78.0-98.0); Mean Platelet Volume 9.5 fL (7.4-10.4); Platelet Count 162 10x3/uL (130-400); Red Blood Cell (RBC) Count 2.77 mill/uL (4.20-5.40); White Blood Cell (WBC) Count 7.7 10x3/uL (4.8-10.8)
[2023-08-14 10:47] LABS: INR-International Normal Ratio 1.1; Prothrombin Time 14.6 sec (12.0-14.7)
[2023-08-14 10:48] LABS: PTT 31.9 sec (22.9-36.1)
[2023-08-14] MEDS ORDERED: Lidocaine 1% w/Epinephrine 1:100K 20 ML VIAL ONE (11:21)
[2023-08-14] MEDS ORDERED: Lidocaine 1% (PF) 30 ML VIAL ONE (11:21)
[2023-08-14] MEDS ORDERED: Midazolam HCl 2 mg/2 ml Vial ONE (12:48)
[2023-08-14] MEDS ORDERED: fentaNYL 50 mcg/mL 1 mL Vial ONE ×5 (12:48→15:23)
[2023-08-14] MEDS ORDERED: Lidocaine 1% PF 5 ML VIAL ONE (13:07)
[2023-08-14] MEDS ORDERED: PROPOFOL 200 MG/20 ML VIAL ONE (13:07)
[2023-08-14] MEDS ORDERED: CEFAZOLIN 2 GM VIAL ONE (13:33)
[2023-08-14] MEDS ORDERED: Ketamine In 0.9 % NaCl 50 MG/5 ML SYRINGE ONE (13:53)
[2023-08-14] MEDS ORDERED: Ipratropium/Albuterol 3 ML NEB ONE (14:58)
[2023-08-14] MEDS ORDERED: Ondansetron PF 4 MG/2 ML Vial ONE (15:02)
[2023-08-14 15:18] LABS: #Basophils 0.1 thou/uL (0.0-0.2); #Eosinphils 0.1 thou/uL (0.0-0.7); #Monocytes 1.2 thou/uL (0.11-0.59); #Neutrophils 7.2 thou/uL (1.40-6.50); %Basophils 0.5 % (0.0-1.0); %Eosinophils 1.1 % (0.0-10.0); %Lymphocytes 13.9 % (21.0-51.0); %Monocytes 12.3 % (0.0-10.0); %Neutrophils 71.9 % (42.0-75.0); Hematocrit 30.6 % (36.0-47.0); Hemoglobin 9.7 g/dL (12.0-16.0); Mean Corpuscular HGB CONC 31.7 g/dL (32.0-36.0); Mean Corpuscular Hemoglobin 31.7 pg (27.0-31.0); Mean Platelet Volume 9.5 fL (7.4-10.4); Platelet Count 205 10x3/uL (130-400); RBC Distribution Width 16.1 % (11.5-14.5); Red Blood Cell (RBC) Count 3.06 mill/uL (4.20-5.40); White Blood Cell (WBC) Count 9.9 10x3/uL (4.8-10.8)
[2023-08-14 15:34] LABS: Actual Bicarbonate (HCO3a) 21.1 mEq/L (22-28); Base Excess (BEa) -5.1 mEq/L (-2.0 to +3.0); CO2 Tension 44.3 mmHg (35.0-45.0); Carboxyhemoglobin (COHb) 0.4 gm% (0.0-3.0); Hematocrit-ABG 30 % (36.0-47.0); Hemoglobin (Hb) 10.1 g/dL (12.0-16.0); Potassium - ABG Lab 3.79 mmol/L (3.70-5.30); pH, Arterial 7.296 (7.35-7.45)
[2023-08-14 15:36] LABS: O2 Tension (PaO2), arterial 56.9 mmHg (> 70.0); Puncture Site RRA
[2023-08-14 15:41] LABS: Anion Gap 14 mmol/L (10-20); BUN (Urea Nitrogen) 16 mg/dL (9.8-20.1); Calc. Creatinine Clearance 40 mL/min (70-130); Calcium 7.5 mg/dL (7.8-10.44); Carbon Dioxide 22 mmol/L (23-31); Chloride 108 mmol/L (98-107); Estimated GFR 41; Glucose 143 mg/dL (83-110); Potassium 3.9 mmol/L (3.5-5.1); Sodium 140 mmol/L (136-145)
[2023-08-14] MEDS ORDERED: Ketorolac Tromethamine 30 MG/ML VIAL ONE (16:33)
[2023-08-14] MEDS ORDERED: Furosemide 20 MG/2 ML VIAL ONE (16:34)
[2023-08-14] MEDS: Cephalexin 250 MG CAP PO SCH ×2 (16:59→20:58)
[2023-08-14] MEDS ORDERED: Potassium Chloride 20 MEQ TAB PO SCH (17:00)
[2023-08-14] MEDS: Rosuvastatin 20 MG TAB PO SCH (20:58)
[2023-08-14] MEDS: Sucralfate 1 GM TAB PO SCH (20:58)
[2023-08-15] MEDS: Acetaminophen 325 MG TAB PO PRN (00:31)
[2023-08-15] MEDS: Morphine 2 MG/ML VIAL SLOW IVP PRN ×2 (02:28→12:28)
[2023-08-15 05:01] LABS: Hematocrit 25.5 % (36.0-47.0); Hemoglobin 8.2 g/dL (12.0-16.0); Mean Corpuscular HGB CONC 32.2 g/dL (32.0-36.0); Mean Corpuscular Hemoglobin 31.8 pg (27.0-31.0); Mean Corpuscular Volume 98.8 fl (78.0-98.0); Platelet Count 156 10x3/uL (130-400); RBC Distribution Width 16.1 % (11.5-14.5); Red Blood Cell (RBC) Count 2.58 mill/uL (4.20-5.40); White Blood Cell (WBC) Count 12.1 10x3/uL (4.8-10.8)
[2023-08-15 05:22] LABS: Delete Auto Diff?? YES; Manual Diff?? YES
[2023-08-15 05:36] LABS: Anion Gap 10 mmol/L (10-20); BUN (Urea Nitrogen) 15 mg/dL (9.8-20.1); Calc. Creatinine Clearance 48 mL/min (70-130); Carbon Dioxide 23 mmol/L (23-31); Chloride 108 mmol/L (98-107); Estimated GFR 51; Glucose 115 mg/dL (83-110); Potassium 3.6 mmol/L (3.5-5.1); Sodium 137 mmol/L (136-145)
[2023-08-15 05:43] LABS: Calcium 6.6 mg/dL (7.8-10.44)
[2023-08-15 06:02] LABS: Anisocytosis SLIGHT = 6-15 cells HPF (0-5); Band 1 % (5-11); CellaVision Operator ID lab.sh2; Lymphocytes 5 % (21-51); Macrocytosis SLIGHT = 6-15 cells HPF (0-5); Monocytes 1 % (0-10); Neutrophil 93 % (42-75); Ovalocytes SLIGHT = 2-5 cells HPF (0-1); Platelet Adequacy Comment Platelets Normal; Polychromasia SLIGHT = 2-3 cells HPF (0-2); Smudge Cells 6.9 %; Total Cell Count 102
[2023-08-15] MEDS ORDERED: Calcium Gluc 4.6 MEQ/10 ML (100 MG/ML) SLOW IVP ONE (06:02)
[2023-08-15] MEDS: Sucralfate 1 GM TAB PO SCH ×4 (06:05→20:57)
[2023-08-15] MEDS: Levothyroxine Sodium 112 MCG TAB PO SCH (06:05)
[2023-08-15] MEDS: Levothyroxine Sodium 25 MCG TAB PO SCH (06:05)
[2023-08-15] MEDS: Midodrine HCl 5 MG TAB PO SCH ×3 (06:05→20:58)
[2023-08-15] MEDS ORDERED: CALCIUM GLUC 1 GM/NS 50 ML 1 GM in Premix 1 BAG IVPB SCH (06:15)
[2023-08-15] MEDS ORDERED: Potassium Chloride 20 MEQ TAB PO SCH (07:45)
[2023-08-15] MEDS ORDERED: Furosemide 20 MG/2 ML VIAL SLOW IVP SCH (07:45)
[2023-08-15] MEDS: Ketorolac Tromethamine 30 MG/ML VIAL IVP PRN ×3 (09:29→23:50)
[2023-08-15] MEDS: Cephalexin 250 MG CAP PO SCH ×3 (09:30→20:57)
[2023-08-15] MEDS: Fludrocortisone Acetate 0.1 MG TAB PO SCH (09:30)
[2023-08-15] MEDS: Folic Acid 1 MG TAB PO SCH (09:30)
[2023-08-15] MEDS: Ezetimibe 10 MG TAB PO SCH (09:30)
[2023-08-15] MEDS: Sertraline 25 MG TAB PO SCH (09:30)
[2023-08-15] MEDS: Ferrous Gluconate 324 MG TAB PO SCH ×2 (09:30→20:57)
[2023-08-15] MEDS: Cholecalciferol 1,000 UNITS (25 MCG) TAB PO SCH (09:30)
[2023-08-15] MEDS: CO Q-10 CAPSULE 50 MG PO SCH (10:39)
[2023-08-15] MEDS: Rosuvastatin 20 MG TAB PO SCH (20:57)
[2023-08-15] MEDS: Apixaban 2.5 MG TAB PO SCH (20:57)
[2023-08-16 04:11] LABS: #Eosinphils 0.2 thou/uL (0.0-0.7); #Monocytes 1.2 thou/uL (0.11-0.59); #Neutrophils 7.4 thou/uL (1.40-6.50); %Basophils 0.3 % (0.0-1.0); %Eosinophils 2.4 % (0.0-10.0); %Lymphocytes 8.9 % (21.0-51.0); %Monocytes 12.7 % (0.0-10.0); %Neutrophils 75.3 % (42.0-75.0); Hematocrit 23.4 % (36.0-47.0); Hemoglobin 7.7 g/dL (12.0-16.0); Mean Corpuscular HGB CONC 32.9 g/dL (32.0-36.0); Mean Corpuscular Hemoglobin 32.2 pg (27.0-31.0); Mean Corpuscular Volume 97.9 fl (78.0-98.0); Mean Platelet Volume 10.6 fL (7.4-10.4); Platelet Count 168 10x3/uL (130-400); RBC Distribution Width 16.1 % (11.5-14.5); Red Blood Cell (RBC) Count 2.39 mill/uL (4.20-5.40); White Blood Cell (WBC) Count 9.8 10x3/uL (4.8-10.8)
[2023-08-16 04:36] LABS: ALT (SGPT) 224 U/L (8-55); AST (SGOT) 389 U/L (5-34); Albumin 2.8 g/dL (3.4-4.8); Alkaline Phosphatase 53 U/L (40-110); Anion Gap 13 mmol/L (10-20); BUN (Urea Nitrogen) 19 mg/dL (9.8-20.1); Bilirubin, Total 0.7 mg/dL (0.2-1.2); Calc. Creatinine Clearance 46 mL/min (70-130); Carbon Dioxide 21 mmol/L (23-31); Chloride 108 mmol/L (98-107); Estimated GFR 47; Globulin 2.5 g/dL (2.4-3.5); Glucose 84 mg/dL (83-110); Protein, Total 5.3 g/dL (5.8-8.1); Sodium 138 mmol/L (136-145)
[2023-08-16 04:42] LABS: Calcium 6.9 mg/dL (7.8-10.44)
[2023-08-16] MEDS: Midodrine HCl 5 MG TAB PO SCH ×3 (05:51→20:14)
[2023-08-16] MEDS: Levothyroxine Sodium 25 MCG TAB PO SCH (05:51)
[2023-08-16] MEDS: Levothyroxine Sodium 112 MCG TAB PO SCH (05:51)
[2023-08-16] MEDS: Cephalexin 250 MG CAP PO SCH ×3 (08:50→20:10)
[2023-08-16] MEDS: Fludrocortisone Acetate 0.1 MG TAB PO SCH (08:50)
[2023-08-16] MEDS: Morphine 2 MG/ML VIAL SLOW IVP PRN ×2 (08:50→23:53)
[2023-08-16] MEDS: Apixaban 2.5 MG TAB PO SCH ×2 (08:51→20:10)
[2023-08-16] MEDS: Ezetimibe 10 MG TAB PO SCH (08:51)
[2023-08-16] MEDS: Cholecalciferol 1,000 UNITS (25 MCG) TAB PO SCH (08:51)
[2023-08-16] MEDS: Sertraline 25 MG TAB PO SCH (08:51)
[2023-08-16] MEDS: Ferrous Gluconate 324 MG TAB PO SCH ×2 (08:51→20:10)
[2023-08-16] MEDS: Sucralfate 1 GM TAB PO SCH ×4 (08:51→20:15)
[2023-08-16] MEDS: CO Q-10 CAPSULE 50 MG PO SCH (08:52)
[2023-08-16] MEDS: Folic Acid 1 MG TAB PO SCH (08:52)
[2023-08-16] MEDS ORDERED: Furosemide 20 MG/2 ML VIAL SLOW IVP SCH ×2 (10:00→17:30)
[2023-08-16] MEDS ORDERED: Furosemide 40 MG/4 ML VIAL ONE (12:32)
[2023-08-16] MEDS: Calcium Carbonate 500 MG ChewTAB PO SCH (20:11)
[2023-08-16] MEDS: Rosuvastatin 20 MG TAB PO SCH (20:11)
[2023-08-17] MEDS ORDERED: Ondansetron PF 4 MG/2 ML Vial IVP PRN (00:45)
[2023-08-17] MEDS ORDERED: Ondansetron ODT 4 MG TAB PO PRN (00:45)
[2023-08-17 04:51] LABS: Hematocrit 31.2 % (36.0-47.0); Hemoglobin 10.4 g/dL (12.0-16.0)
[2023-08-17 05:21] LABS: ALT (SGPT) 174 U/L (8-55); AST (SGOT) 212 U/L (5-34); Albumin 3.1 g/dL (3.4-4.8); Alkaline Phosphatase 80 U/L (40-110); Anion Gap 17 mmol/L (10-20); BUN (Urea Nitrogen) 16 mg/dL (9.8-20.1); Calc. Creatinine Clearance 47 mL/min (70-130); Calcium 7.2 mg/dL (7.8-10.44); Carbon Dioxide 21 mmol/L (23-31); Chloride 103 mmol/L (98-107); Estimated GFR 49; Globulin 2.8 g/dL (2.4-3.5); Glucose 105 mg/dL (83-110); Potassium 2.7 mmol/L (3.5-5.1); Protein, Total 5.9 g/dL (5.8-8.1); Sodium 138 mmol/L (136-145)
[2023-08-17] MEDS: Midodrine HCl 5 MG TAB PO SCH ×3 (06:24→20:44)
[2023-08-17] MEDS: Potassium Chloride 20 MEQ TAB PO SCH ×2 (06:24→13:52)
[2023-08-17] MEDS: Furosemide 20 MG/2 ML VIAL SLOW IVP SCH ×2 (06:24→13:52)
[2023-08-17] MEDS: Levothyroxine Sodium 112 MCG TAB PO SCH (06:24)
[2023-08-17] MEDS: Levothyroxine Sodium 25 MCG TAB PO SCH (06:24)
[2023-08-17] MEDS: Morphine 2 MG/ML VIAL SLOW IVP PRN ×2 (06:29→19:24)
[2023-08-17] MEDS: Sucralfate 1 GM TAB PO SCH ×4 (06:30→20:44)
[2023-08-17] MEDS: Calcium Carbonate 500 MG ChewTAB PO SCH ×2 (07:49→20:44)
[2023-08-17] MEDS: Cholecalciferol 1,000 UNITS (25 MCG) TAB PO SCH (07:50)
[2023-08-17] MEDS: Apixaban 2.5 MG TAB PO SCH ×2 (07:51→20:44)
[2023-08-17] MEDS: Ferrous Gluconate 324 MG TAB PO SCH ×2 (07:51→20:44)
[2023-08-17] MEDS: Cephalexin 250 MG CAP PO SCH ×3 (07:51→20:44)
[2023-08-17] MEDS: Ezetimibe 10 MG TAB PO SCH (07:51)
[2023-08-17] MEDS: Sertraline 25 MG TAB PO SCH (07:52)
[2023-08-17] MEDS: Fludrocortisone Acetate 0.1 MG TAB PO SCH (07:52)
[2023-08-17] MEDS: Folic Acid 1 MG TAB PO SCH (07:52)
[2023-08-17] MEDS: CO Q-10 CAPSULE 50 MG PO SCH (13:19)
[2023-08-17] MEDS ORDERED: Potassium Chloride 20 MEQ TAB PO SCH (14:00)
[2023-08-17] MEDS: Rosuvastatin 20 MG TAB PO SCH (20:43)
[2023-08-18 04:14] LABS: ALT (SGPT) 132 U/L (8-55); AST (SGOT) 152 U/L (5-34); Albumin 2.9 g/dL (3.4-4.8); Alkaline Phosphatase 76 U/L (40-110); Anion Gap 14 mmol/L (10-20); BUN (Urea Nitrogen) 11 mg/dL (9.8-20.1); Bilirubin, Total 0.8 mg/dL (0.2-1.2); Calc. Creatinine Clearance 46 mL/min (70-130); Calcium 7.4 mg/dL (7.8-10.44); Carbon Dioxide 24 mmol/L (23-31); Chloride 103 mmol/L (98-107); Estimated GFR 47; Globulin 2.8 g/dL (2.4-3.5); Glucose 115 mg/dL (83-110); Protein, Total 5.7 g/dL (5.8-8.1); Sodium 138 mmol/L (136-145)
[2023-08-18 04:21] LABS: Potassium 2.6 mmol/L (3.5-5.1)
[2023-08-18] MEDS: Midodrine HCl 5 MG TAB PO SCH ×3 (05:46→21:01)
[2023-08-18] MEDS: Levothyroxine Sodium 25 MCG TAB PO SCH (05:46)
[2023-08-18] MEDS: Levothyroxine Sodium 112 MCG TAB PO SCH (05:47)
[2023-08-18] MEDS: Furosemide 20 MG/2 ML VIAL SLOW IVP SCH ×2 (05:47→13:19)
[2023-08-18] MEDS: Potassium Chloride 20 MEQ TAB PO SCH ×3 (05:47→17:20)
[2023-08-18] MEDS: Apixaban 2.5 MG TAB PO SCH (09:10)
[2023-08-18] MEDS: Sucralfate 1 GM TAB PO SCH ×4 (09:10→21:01)
[2023-08-18] MEDS: Calcium Carbonate 500 MG ChewTAB PO SCH ×2 (09:10→21:00)
[2023-08-18] MEDS: Cephalexin 250 MG CAP PO SCH (09:10)
[2023-08-18] MEDS: Cholecalciferol 1,000 UNITS (25 MCG) TAB PO SCH (09:10)
[2023-08-18] MEDS: Ferrous Gluconate 324 MG TAB PO SCH ×2 (09:10→21:01)
[2023-08-18] MEDS: Ezetimibe 10 MG TAB PO SCH (09:10)
[2023-08-18] MEDS: Sertraline 25 MG TAB PO SCH (09:11)
[2023-08-18] MEDS: Fludrocortisone Acetate 0.1 MG TAB PO SCH (09:11)
[2023-08-18] MEDS: Folic Acid 1 MG TAB PO SCH (09:11)
[2023-08-18] MEDS ORDERED: Vancomycin 1 GM in Sodium Chloride 0.9% 250 ML 250 ML IVPB SCH (11:00)
[2023-08-18] MEDS ORDERED: Vancomycin (BATCH) 1.5 GM in Premix 1 BAG IVPB SCH ×2 (11:30→13:00)
[2023-08-18] MEDS: Cefepime 1 GM in Sodium Chloride 0.9% 100 ML IVPB SCH (11:49)
[2023-08-18] MEDS: CO Q-10 CAPSULE 50 MG PO SCH (11:50)
[2023-08-18] MEDS ORDERED: Metoprolol Tartrate 25 MG TAB PO SCH (12:45)
[2023-08-18] MEDS ORDERED: Flecainide 50 MG TAB PO SCH (12:45)
[2023-08-18] MEDS ORDERED: Apixaban 2.5 MG TAB PO SCH (21:00)
[2023-08-18] MEDS: Metoprolol Tartrate 25 MG TAB PO SCH (21:01)
[2023-08-18] MEDS: Flecainide 50 MG TAB PO SCH (21:01)
[2023-08-18] MEDS: Rosuvastatin 20 MG TAB PO SCH (21:01)
[2023-08-19] MEDS: Cefepime 1 GM in Sodium Chloride 0.9% 100 ML IVPB SCH ×2 (00:58→12:59)
[2023-08-19 04:06] LABS: #Basophils 0.1 thou/uL (0.0-0.2); #Eosinphils 0.2 thou/uL (0.0-0.7); #Monocytes 1.4 thou/uL (0.11-0.59); #Neutrophils 4.5 thou/uL (1.40-6.50); %Basophils 0.7 % (0.0-1.0); %Monocytes 19.9 % (0.0-10.0); Hematocrit 32.3 % (36.0-47.0); Hemoglobin 10.8 g/dL (12.0-16.0); Mean Corpuscular HGB CONC 33.4 g/dL (32.0-36.0); Mean Corpuscular Hemoglobin 30.9 pg (27.0-31.0); Mean Corpuscular Volume 92.6 fl (78.0-98.0); Mean Platelet Volume 9.5 fL (7.4-10.4); Platelet Count 220 10x3/uL (130-400); RBC Distribution Width 16.8 % (11.5-14.5); Red Blood Cell (RBC) Count 3.49 mill/uL (4.20-5.40); White Blood Cell (WBC) Count 7.2 10x3/uL (4.8-10.8)
[2023-08-19 04:34] LABS: ALT (SGPT) 125 U/L (8-55); AST (SGOT) 140 U/L (5-34); Albumin 2.9 g/dL (3.4-4.8); Alkaline Phosphatase 72 U/L (40-110); Anion Gap 11 mmol/L (10-20); BUN (Urea Nitrogen) 15 mg/dL (9.8-20.1); Bilirubin, Total 0.6 mg/dL (0.2-1.2); Calc. Creatinine Clearance 44 mL/min (70-130); Calcium 7.8 mg/dL (7.8-10.44); Carbon Dioxide 25 mmol/L (23-31); Chloride 104 mmol/L (98-107); Estimated GFR 46; Globulin 2.9 g/dL (2.4-3.5); Glucose 116 mg/dL (83-110); Magnesium 1.5 mg/dL (1.6-2.6); Potassium 2.9 mmol/L (3.5-5.1); Protein, Total 5.8 g/dL (5.8-8.1); Sodium 137 mmol/L (136-145)
[2023-08-19] MEDS: Furosemide 20 MG/2 ML VIAL SLOW IVP SCH ×2 (06:24→13:00)
[2023-08-19] MEDS: Levothyroxine Sodium 112 MCG TAB PO SCH (06:25)
[2023-08-19] MEDS: Sucralfate 1 GM TAB PO SCH ×4 (06:25→20:19)
[2023-08-19] MEDS: Levothyroxine Sodium 25 MCG TAB PO SCH (06:25)
[2023-08-19] MEDS: Midodrine HCl 5 MG TAB PO SCH ×3 (06:25→20:17)
[2023-08-19] MEDS ORDERED: Potassium Chloride 20 MEQ TAB PO SCH ×2 (08:00→12:00)
[2023-08-19] MEDS ORDERED: Magnesium 2 GM/50 ML(in water) 2 GM in Premix 1 BAG IVPB SCH (08:00)
[2023-08-19] MEDS: Calcium Carbonate 500 MG ChewTAB PO SCH ×2 (09:27→20:17)
[2023-08-19] MEDS: Potassium Chloride 20 MEQ TAB PO SCH ×2 (09:27→17:46)
[2023-08-19] MEDS: Folic Acid 1 MG TAB PO SCH (09:28)
[2023-08-19] MEDS: Fludrocortisone Acetate 0.1 MG TAB PO SCH (09:28)
[2023-08-19] MEDS: Flecainide 50 MG TAB PO SCH ×2 (09:28→20:18)
[2023-08-19] MEDS: Ezetimibe 10 MG TAB PO SCH (09:28)
[2023-08-19] MEDS: Ferrous Gluconate 324 MG TAB PO SCH ×2 (09:28→20:18)
[2023-08-19] MEDS: Cholecalciferol 1,000 UNITS (25 MCG) TAB PO SCH (09:28)
[2023-08-19] MEDS: Sertraline 25 MG TAB PO SCH (09:29)
[2023-08-19] MEDS: Metoprolol Tartrate 25 MG TAB PO SCH ×2 (09:29→20:18)
[2023-08-19] MEDS: CO Q-10 CAPSULE 50 MG PO SCH (12:42)
[2023-08-19] MEDS: Acetaminophen 325 MG TAB PO PRN (13:40)
[2023-08-19] MEDS ORDERED: Vancomycin (BATCH) 1.25 GM in Premix 1 BAG IVPB SCH (14:00)
[2023-08-19 14:40] LABS: Pleural Fluid, Protein 2.6 g/dL
[2023-08-19 14:52] LABS: RBC Count-Automated (BF) 14276 /cu.mm; WBC/Nucleated-Auto (BF) 1298 /cu.mm
[2023-08-19 14:55] LABS: BF Color Pink; Body Fluid Source Pleural Fluid; Clarity Hazy (Clear); Tube # EDTA
[2023-08-19 15:33] LABS: BF Segmented Neutrophils 35 %; Cell Count Non Hematic 47 %; Lymphocytes 18 %
[2023-08-19] MEDS: Rosuvastatin 20 MG TAB PO SCH (20:18)
[2023-08-19] MEDS: Apixaban 5 MG TAB PO SCH (20:18)
[2023-08-20] MEDS: Midodrine HCl 5 MG TAB PO SCH ×2 (05:45→13:53)
[2023-08-20] MEDS: Levothyroxine Sodium 112 MCG TAB PO SCH (05:45)
[2023-08-20] MEDS: Levothyroxine Sodium 25 MCG TAB PO SCH (05:45)
[2023-08-20] MEDS: Calcium Carbonate 500 MG ChewTAB PO SCH (09:59)
[2023-08-20] MEDS: Flecainide 50 MG TAB PO SCH (09:59)
[2023-08-20] MEDS: Metoprolol Tartrate 25 MG TAB PO SCH (10:00)
[2023-08-20] MEDS: Fludrocortisone Acetate 0.1 MG TAB PO SCH (10:00)
[2023-08-20] MEDS: Cholecalciferol 1,000 UNITS (25 MCG) TAB PO SCH (10:00)
[2023-08-20] MEDS: Potassium Chloride 20 MEQ TAB PO SCH (10:01)
[2023-08-20] MEDS: Folic Acid 1 MG TAB PO SCH (10:01)
[2023-08-20] MEDS: Sucralfate 1 GM TAB PO SCH ×2 (10:01→12:25)
[2023-08-20] MEDS: Sertraline 25 MG TAB PO SCH (10:01)
[2023-08-20] MEDS: Ferrous Gluconate 324 MG TAB PO SCH (10:01)
[2023-08-20] MEDS: Apixaban 5 MG TAB PO SCH (10:02)
[2023-08-20] MEDS: CO Q-10 CAPSULE 50 MG PO SCH (10:02)
[2023-08-20] MEDS: Ezetimibe 10 MG TAB PO SCH (10:02)
[2023-08-20 11:34] LABS: Phosphorus 2.5 mg/dL (2.3-4.7); Potassium 3.2 mmol/L (3.5-5.1)
[2023-08-20 11:49] VITALS: BP 130/74; TEMP 97.9
[2023-08-20] MEDS ORDERED: Potassium Chloride 20 MEQ TAB PO SCH (13:00)
[2023-08-20] MEDS: Magnesium 2 GM/50 ML(in water) 2 GM in Premix 1 BAG IVPB SCH ×2 (13:55→14:15)
== END 2023-08-20 15:32 | disposition home health service (06) | DRG 273 ==
LOC: SDC 08:25 → IMCU/EMU 16:33 → 2NO 08-19 21:14
PROVIDERS: ADMIT Internal Medicine Cardiovascular Disease; ATTEND Internal Medicine Cardiovascular Disease
PROC: 02583ZZ Destruction of Conduction Mechanism, Percutaneous Approach (ICD-10-PCS; principal; 2023-08-13)
PROC: 5A2204Z Restoration of Cardiac Rhythm, Single (ICD-10-PCS; 2023-08-13)
PROC: 0W9D30Z Drainage of Pericardial Cavity with Drainage Device, Percutaneous Approach (ICD-10-PCS; 2023-08-14)
PROC: 4A133R1 Monitoring of Arterial Saturation, Peripheral, Percutaneous Approach (ICD-10-PCS; 2023-08-14)
PROC: 30233N1 Transfusion of Nonautologous Red Blood Cells into Peripheral Vein, Percutaneous Approach (ICD-10-PCS; 2023-08-16)
PROC: 0W993ZZ Drainage of Right Pleural Cavity, Percutaneous Approach (ICD-10-PCS; 2023-08-19)
DX: I48.19 Other persistent atrial fibrillation (principal); J18.9 Pneumonia, unspecified organism; J96.01 Acute respiratory failure with hypoxia; I31.39 Other pericardial effusion (noninflammatory); I31.4 Cardiac tamponade; J91.8 Pleural effusion in other conditions classified elsewhere; N17.9 Acute kidney failure, unspecified; K21.9 Gastro-esophageal reflux disease without esophagitis; I10 Essential (primary) hypertension; M06.9 Rheumatoid arthritis, unspecified; E78.5 Hyperlipidemia, unspecified; E03.9 Hypothyroidism, unspecified; I25.10 Atherosclerotic heart disease of native coronary artery without angina pectoris; F17.210 Nicotine dependence, cigarettes, uncomplicated; I95.1 Orthostatic hypotension; E87.6 Hypokalemia; E83.51 Hypocalcemia; R74.01 Elevation of levels of liver transaminase levels; E87.70 Fluid overload, unspecified; I48.0 Paroxysmal atrial fibrillation; Z71.6 Tobacco abuse counseling; Z98.890 Other specified postprocedural states; Z79.899 Other long term (current) drug therapy; Z88.2 Allergy status to sulfonamides; Z88.5 Allergy status to narcotic agent; Z79.82 Long term (current) use of aspirin; Z86.718 Personal history of other venous thrombosis and embolism; Z90.89 Acquired absence of other organs; Z79.01 Long term (current) use of anticoagulants
CPT/HCPCS: 33016; 33025; 36415; 36430; 36600; 71045; 71250; 80048; 80053; 82306; 82805; 82945; 83615; 83735; 83986; 84100; 84132; 84157; 85014; 85018; 85025; 85027; 85060; 85610; 85730; 86850; 86900; 86901; 87081; 89051; 93005; 93010; 93306; 93622; 93623; 93656; 93657; C1732; C1759; C1760; C1769; C1894; C2630; J0613; J0692; J1200; J1644; J1885; J1940; J2001; J2250; J2272; J2370; J2405; J2704; J2720; J3010; J3370; J3475; J3490; J7620; P9016; Q0162; Q9967

== ENCOUNTER 2023-08-27 09:44 | Emergency (ER) | payer MEDICARE, BC ==
[2023-08-27 10:37] LABS: #Basophils 0.1 thou/uL (0.0-0.2); #Eosinphils 0.2 thou/uL (0.0-0.7); #Monocytes 0.8 thou/uL (0.11-0.59); #Neutrophils 6.8 thou/uL (1.40-6.50); %Basophils 1.2 % (0.0-1.0); %Eosinophils 2.4 % (0.0-10.0); %Lymphocytes 13.9 % (21.0-51.0); %Monocytes 8.3 % (0.0-10.0); %Neutrophils 73.9 % (42.0-75.0); Hematocrit 36.9 % (36.0-47.0); Hemoglobin 11.9 g/dL (12.0-16.0); Mean Corpuscular HGB CONC 32.2 g/dL (32.0-36.0); Mean Corpuscular Hemoglobin 30.4 pg (27.0-31.0); Mean Corpuscular Volume 94.1 fl (78.0-98.0); Mean Platelet Volume 9.5 fL (7.4-10.4); Platelet Count 411 10x3/uL (130-400); RBC Distribution Width 15.8 % (11.5-14.5); Red Blood Cell (RBC) Count 3.92 mill/uL (4.20-5.40); White Blood Cell (WBC) Count 9.3 10x3/uL (4.8-10.8)
[2023-08-27 11:03] LABS: Troponin I 0.047 ng/mL (< 0.028)
[2023-08-27 11:09] LABS: ALT (SGPT) 84 U/L (8-55); AST (SGOT) 88 U/L (5-34); Albumin 3.5 g/dL (3.4-4.8); Alkaline Phosphatase 87 U/L (40-110); Anion Gap 15 mmol/L (10-20); BUN (Urea Nitrogen) 18 mg/dL (9.8-20.1); Bilirubin, Total 0.8 mg/dL (0.2-1.2); Calc. Creatinine Clearance 0 mL/min (70-130); Calcium 8.8 mg/dL (7.8-10.44); Carbon Dioxide 28 mmol/L (23-31); Chloride 102 mmol/L (98-107); Estimated GFR 43; Globulin 3.7 g/dL (2.4-3.5); Glucose 124 mg/dL (83-110); Lipase 41 U/L (8-78); Potassium 2.7 mmol/L (3.5-5.1); Protein, Total 7.2 g/dL (5.8-8.1); Sodium 142 mmol/L (136-145)
== END 2023-08-27 12:40 | disposition home or self-care (01) ==
LOC: ERS 09:44
DX: R07.89 Other chest pain (principal); F17.290 Nicotine dependence, other tobacco product, uncomplicated; I48.91 Unspecified atrial fibrillation
CPT/HCPCS: 36415; 71045; 80053; 83690; 84484; 85025; 93005

== ENCOUNTER 2023-12-06 11:46 | Day surgery (SDC) | payer MEDICARE, BC ==
[2023-12-05 12:09] VITALS: BMI 24.7
[2023-12-06] MEDS ORDERED: PROPOFOL 40 ML ONE (14:39)
[2023-12-06] MEDS ORDERED: Lidocaine 1% PF 5 ML VIAL ONE (14:40)
== END 2023-12-06 15:51 | disposition home or self-care (01) ==
LOC: SDC 11:46
PROVIDERS: ATTEND Internal Medicine Gastroenterology
PROC: 0DB58ZX Excision of Esophagus, Via Natural or Artificial Opening Endoscopic, Diagnostic (ICD-10-PCS; principal; 2023-12-06)
DX: K22.70 Barrett's esophagus without dysplasia (principal); K21.00 Gastro-esophageal reflux disease with esophagitis, without bleeding; K44.9 Diaphragmatic hernia without obstruction or gangrene; R11.2 Nausea with vomiting, unspecified; R63.4 Abnormal weight loss; I48.91 Unspecified atrial fibrillation; I95.1 Orthostatic hypotension; E78.00 Pure hypercholesterolemia, unspecified; R06.9 Unspecified abnormalities of breathing; E07.9 Disorder of thyroid, unspecified; M81.0 Age-related osteoporosis without current pathological fracture; Z79.890 Hormone replacement therapy; Z79.82 Long term (current) use of aspirin; Z79.899 Other long term (current) drug therapy; Z88.5 Allergy status to narcotic agent; Z88.2 Allergy status to sulfonamides; Z88.8 Allergy status to other drugs, medicaments and biological substances; Z87.891 Personal history of nicotine dependence
CPT/HCPCS: 88305; J2704

== ENCOUNTER 2024-11-20 21:16 | Emergency (ER) | payer MEDICARE, BC ==
[2024-11-20 22:18] LABS: #Basophils 0.06 10x3/uL (0.0-0.2); %Basophils 0.6 % (0.0-1.0); %Eosinophils 1.5 % (0.0-10.0); %Lymphocytes 17.9 % (21.0-51.0); %Monocytes 15.6 % (0.0-10.0); %Neutrophils 64.1 % (42.0-75.0); Hematocrit 42.9 % (36.0-47.0); Hemoglobin 14.1 g/dL (12.0-16.0); Mean Corpuscular HGB CONC 32.9 g/dL (32.0-36.0); Mean Corpuscular Hemoglobin 30.5 pg (27.0-31.0); Mean Corpuscular Volume 92.9 fL (78.0-98.0); Mean Platelet Volume 9.3 fL (7.4-10.4); Platelet Count 157 10x3/uL (130-400); RBC Distribution Width 13.3 % (11.5-14.5); Red Blood Cell (RBC) Count 4.62 mill/uL (4.20-5.40)
[2024-11-20 22:38] LABS: ALT (SGPT) 13 U/L (Less than 34); AST (SGOT) 24 U/L (11-34); Albumin 3.5 g/dL (3.1-4.5); Alkaline Phosphatase 56 U/L (40-110); Anion Gap 15 mmol/L (10-20); BUN (Urea Nitrogen) 16 mg/dL (9.8-20.1); Bilirubin, Total 0.3 mg/dL (0.3-1.2); Calc. Creatinine Clearance 0 mL/min (70-130); Calcium 8.9 mg/dL (7.8-10.44); Carbon Dioxide 24 mmol/L (23-31); Chloride 106 mmol/L (98-107); Estimated GFR 73; Globulin 3.4 g/dL (2.4-3.5); Glucose 96 mg/dL (83-110); Potassium 3.4 mmol/L (3.5-5.1); Protein, Total 6.9 g/dL (5.8-8.1); Sodium 142 mmol/L (136-145)
[2024-11-20 22:43] LABS: Troponin I Less than 0.010 ng/mL (< 0.028)
[2024-11-20 23:13] LABS: Digoxin 0.76 ng/mL (0.8-2.0)
[2024-11-20 23:26] LABS: Magnesium 1.8 mg/dL (1.6-2.6)
[2024-11-21] MEDS ORDERED: Magnesium 2 GM/50 ML BAG (IN WATER) ONE (00:17)
[2024-11-21] MEDS ORDERED: Procainamide 2,000 MG in Sodium Chloride 0.9% 500 ML IVPB SCH (02:15)
[2024-11-21] MEDS ORDERED: Apixaban 5 MG TAB ONE (02:29)
== END 2024-11-21 05:02 | disposition home or self-care (01) ==
LOC: ERS 21:16
DX: I48.0 Paroxysmal atrial fibrillation (principal); R61 Generalized hyperhidrosis; I10 Essential (primary) hypertension; E78.5 Hyperlipidemia, unspecified; I95.1 Orthostatic hypotension; F17.290 Nicotine dependence, other tobacco product, uncomplicated
CPT/HCPCS: 71045; 80053; 80162; 83735; 84484; 85025; 93005 ×2; J2690; J3475; J7030; 36415; 96365; 96375

== ENCOUNTER 2025-06-02 12:53 | Outpatient (CLI) | payer MEDICARE, BC | END 2025-06-02 12:54 | disposition home or self-care (01) | LOC: BICMAMMO 12:53 | PROVIDERS: ATTEND Internal Medicine | DX: Z12.31 Encounter for screening mammogram for malignant neoplasm of breast (principal); M81.0 Age-related osteoporosis without current pathological fracture; M85.89 Other specified disorders of bone density and structure, multiple sites; Z85.828 Personal history of other malignant neoplasm of skin | CPT/HCPCS: 77063; 77067; 77080 ==